=== PATIENT | male | born 1945 | race Caucasian/White ===

== ENCOUNTER 2016-09-25 14:45 | Emergency (ER) | payer OTHER ==
[~2016-09-25] VITALS: Ht 177.8 cm; Wt 149.2 kg
[2016-09-25 15:28] LABS: HEMATOCRIT 44.7 % (38.0-50.0); MCH 31.7 PG (29.0-34.0); MCV 93.3 FL (86-99); MEAN PLAT.VOLUME 10.2 uM^3 (9.0-12.4); PLATELET COUNT 159 K/uL (156-360); RBC DIS.WIDTH-SD 43.3 % (39-53); RED BLOOD COUNT 4.79 M/uL (4.00-5.50); WHITE BLOOD COUNT 8.2 K/uL (4.1-10.2)
[2016-09-25] MEDS ORDERED: FOLBIC RF TABL1 EACH PO (15:29)
[2016-09-25] MEDS ORDERED: PROSTATE HEALT1 EAC1 PO (15:30)
[2016-09-25] MEDS ORDERED: IBUPROFEN200 M1 PO (15:32)
[2016-09-25 15:40] LABS: CHLORIDE 104 mEq/L (99-109); POTASSIUM 4.4 mEq/L (3.7-5.4); SODIUM 140 mEq/L (136-147)
[2016-09-25 15:41] LABS: GLUCOSE 130 mg/dL (70-99)
[2016-09-25 15:43] LABS: ANION GAP 10 MEQ/L (2-14)
[2016-09-25 15:46] LABS: GFR ESTIMATE (CALCULATED) > 59 mL/min/; UREA NITROGEN (BUN) 18 mg/dL (9-23)
[2016-09-25 16:15] VITALS: BP 154/94
[2016-09-25] MEDS ORDERED: DULCOLAX5 MG PO (16:20)
[2016-09-25] MEDS ORDERED: PREPARATION H O28 GM PR (16:21)
== END 2016-09-25 16:39 | disposition home or self-care (01) ==
LOC: EME 14:45
PROVIDERS: Emergency Medicine
DX: K64.4 Residual hemorrhoidal skin tags (principal); K92.2 Gastrointestinal hemorrhage, unspecified
CPT/HCPCS: 80048; 85027; 99281; 99284